=== PATIENT | male | born 1935 | race Two or more races ===

== ENCOUNTER 2022-08-16 12:18 | Inpatient (IN) | payer MEDICARE ==
[~2022-08-16] VITALS: Ht 175.3 cm; Wt 83.9 kg
--- NOTE | 2022-08-16 12:36 | NUR ---
ASSUME PATIENT CARE, WAS BIB CAREGIVER S/P NOTICING PATIENT FOR NEAR SYNCOPAL EPISODE WHILE SITTING IN FRONT PASSENGER SEAT. GOWNED AND PLACED ON DEPUTY ATTORNEY GENERAL. STABLE VITALS AWAITING MD GREWAL.
--- NOTE | 2022-08-16 12:57 | NUR ---
DR LOZANO AT BEDSIDE FOR EVAL.
[2022-08-16] MEDS ORDERED: IV NS 0.9% 1,000 ML BAG IV ONE (13:00)
--- NOTE | 2022-08-16 13:10 | NUR ---
IV LINE STARTED BLOOD DRAWN AND SENT TO LAB.
[2022-08-16 13:36] LABS: BASOPHILS % (AUTO) 0.4 % (0.0-2.0); EOSINOPHILS % (AUTO) 4.7 % (0.0-6.0); HEMATOCRIT 35 % (39-51); HEMOGLOBIN 11.4 g/dL (13.5-17.5); LYMPHOCYTES # (AUTO) 1.8 K/uL (0.8-4.8); LYMPHOCYTES % (AUTO) 27.6 % (20.0-44.0); MEAN CORPUSCULAR HGB CONC 33 g/dl (31.0-36.0); MEAN CORPUSCULAR VOLUME 96 fL (80-96); MONOCYTES # (AUTO) 1.1 K/uL (0.1-1.30); MONOCYTES % (AUTO) 16.8 % (2.0-12.0); NEUTROPHILS # (AUTO) 3.4 K/uL (1.8-8.9); NEUTROPHILS % (AUTO) 50.5 % (43.0-81.0); PLATELET COUNT (AUTO) 170 K/uL (150-450); RED BLOOD CELL COUNT(AUTO) 3.63 MIL/uL (4.5-6.0); WHITE BLOOD COUNT (AUTO) 6.7 K/uL (4.3-11.0)
[2022-08-16 13:41] LABS: ALANINE AMINOTRANSFERASE 23 U/L (12-78); ALBUMIN 2.7 g/dL (3.4-5.0); ALKALINE PHOSPHATASE 83 U/L (46-116); ASPARTATE AMINOTRANSFERASE 21 U/L (15-37); BILIRUBIN,DIRECT 0.1 mg/dL (0.0-0.2); BILIRUBIN,TOTAL 0.4 mg/dL (0.2-1.0); CALCIUM, SERUM 8.6 mg/dL (8.5-10.1); CARBON DIOXIDE 26 mmol/L (21-32); CHLORIDE 105 mmol/L (98-107); CREATININE 2.8 mg/dL (0.6-1.3); GLUCOSE 140 mg/dL (74-106); POTASSIUM 4.5 mmol/L (3.5-5.1); SODIUM SERUM 137 mmol/L (136-145); UREA NITROGEN, BLOOD 56 mg/dL (7-18)
--- NOTE | 2022-08-16 14:03 | NUR ---
RADIOLOGY AT BEDSIDE FOR CHEST XRAY.
[2022-08-16] MEDS ORDERED: HYDR100T27 PO (15:43)
[2022-08-16] MEDS ORDERED: CLON0.1T PO (15:43)
[2022-08-16] MEDS ORDERED: FINA5TAB11 PO (15:43)
[2022-08-16] MEDS ORDERED: CHLO25TA2 PO (15:43)
[2022-08-16] MEDS ORDERED: GABA300C PO (15:43)
[2022-08-16] MEDS ORDERED: CYAN-51 PO (15:43)
[2022-08-16] MEDS ORDERED: ATOR80TA PO (15:43)
[2022-08-16] MEDS ORDERED: DIVA-78 PO (15:43)
[2022-08-16] MEDS ORDERED: CLOP75TA15 PO (15:43)
[2022-08-16] MEDS ORDERED: QUET25TA PO ×2 (15:43)
[2022-08-16] MEDS ORDERED: LISI40TA13 PO (15:43)
[2022-08-16] MEDS ORDERED: CARV6.252 PO (15:43)
--- NOTE | 2022-08-16 15:46 | NUR ---
COVID ANTIGEN SWABBED. LAB CALLED FOR SPORTS TEAM MARKETING INTERN.
[2022-08-16 17:52] LABS: EOSINOPHILS % (MANUAL) 5 % (0-4); LYMPHOCYTES % (MANUAL) 30 % (16-48); MONOCYTES % (MANUAL) 15 % (0-11.0); NEUTROPHILS % (MANUAL) 50 (42-76)
--- NOTE | 2022-08-16 18:11 | NUR ---
GOT BED 312-2
--- NOTE | 2022-08-16 18:28 | NUR ---
REPORT GIVEN TO NORMA TAY. AWAITING TRANSFER TO FLOOR.
[2022-08-16] MEDS ORDERED: MORPHINE SULFATE INJ 2 MG/ML DISP.SYRIN IV PRN (19:00)
[2022-08-16] MEDS ORDERED: Z GUARD REMEDY 4 OZ OINT TP PRN (19:00)
[2022-08-16] MEDS ORDERED: ONDANSETRON HCL/PF 4 MG/2 ML VIAL IVP PRN (19:00)
[2022-08-16] MEDS ORDERED: MAG HYDROX/AL HYDROX/SIMETH 30 ML UDC PO PRN (19:00)
[2022-08-16] MEDS ORDERED: ACETAMINOPHEN 325 MG TABLET PO PRN (19:00)
[2022-08-16] MEDS ORDERED: MAGNESIUM HYDROXIDE 30 ML UDC PO PRN (19:00)
[2022-08-16] MEDS ORDERED: IV NS 0.9% 1,000 ML IV PRN (19:00)
--- NOTE | 2022-08-16 19:30 | NUR ---
PASTE MAKERAIRCRAFT STRUCTURAL DESIGN ENGINEER NOTE PT ARRIVED ON UNIT BEFORE 190. PT FROM HOME ADMITTED TO TELE FROM ER UNDER ROLL FORM OPERATOR VERONICA FOR ADMITTING DX SYNCOPE, POSSIBLY VASOVAGAL, PRERENAL [place]OTEMIA. PT A/O X1-2 WITH EPISODES OF CONFUSION, ABLE TO MAKE NEEDS KNOWN. PT STABLE ON ROOM AIR. NO SOB OR S/S OF RESPIRATORY DISTRESS. BREATHING EVEN AND UNLABORED. ON EXTERNAL BAGGAGE INSPECTOR READING SR 67 BPM. SKIN IS INTACT. IV ACCESS L HAND 18G, INTACT AND PATENT. ORIENTED PT TO UNIT, STAFF, AND ROOM. PT BELONGINGS ACCOUNTED FOR AND BELONGINGS LIST SIGNED. SAFETY PRECAUTION IN PLACE. BED IN LOWEST LOCKED POSITION, HOB ELEVATED, SIDE RAILS UP X3, AND CALL LIGHT AND TABLE WITHIN REACH. ALL NEEDS MET AT THIS TIME.
[2022-08-16 20:00] VITALS: BP 133/59
[2022-08-16 20:16] VITALS: BP 133/59
[2022-08-16] MEDS: GABAPENTIN 300 MG CAPSULE PO SCH (22:11)
[2022-08-16] MEDS: QUETIAPINE FUMARATE 25 MG TABLET PO SCH (22:12)
[2022-08-16] MEDS: ATORVASTATIN 40 MG TABLET PO SCH (22:14)
[2022-08-17] VITALS: BP 150/71
[2022-08-17 04:00] VITALS: BP 179/92
--- NOTE | 2022-08-17 04:30 | NUR ---
ORTHOSTATICS LAYING DOWN BP 179/82 HR 73 R 18 TEMP 97.7 O2 98% SITTING BP 178/92 HR 76 R 18 TEMP 97.7 O2 98% STANDING BP 162/87 HR 88 R 18 TEMP 97.7 O2 97%
[2022-08-17] MEDS ORDERED: hydrALAZINE HCL IV 20 MG VIAL IV PRN (06:00)
--- NOTE | 2022-08-17 06:05 | NUR ---
RN NOTE PT NOTED WITH BP 190/82 HR 87. PT ASYMPTOMATIC AT THIS TIME. INFORMED RESEARCH AGRICULTURAL ENGINEER JOLYNN WITH NEW ORDER NOTED AND CARRIED OUT. ADMINISTERED HYDRALAZINE 10 MG FOR SBP >160 Q8H ORDERED.
[2022-08-17 06:13] LABS: BASOPHILS % (AUTO) 0.4 % (0.0-2.0); EOSINOPHILS % (AUTO) 6.6 % (0.0-6.0); HEMATOCRIT 37 % (39-51); HEMOGLOBIN 12.1 g/dL (13.5-17.5); LYMPHOCYTES # (AUTO) 1.9 K/uL (0.8-4.8); LYMPHOCYTES % (AUTO) 33.1 % (20.0-44.0); MEAN CORPUSCULAR HGB CONC 33 g/dl (31.0-36.0); MEAN CORPUSCULAR VOLUME 96 fL (80-96); MONOCYTES # (AUTO) 0.9 K/uL (0.1-1.30); MONOCYTES % (AUTO) 16.5 % (2.0-12.0); NEUTROPHILS # (AUTO) 2.4 K/uL (1.8-8.9); NEUTROPHILS % (AUTO) 43.4 % (43.0-81.0); PLATELET COUNT (AUTO) 168 K/uL (150-450); RED BLOOD CELL COUNT(AUTO) 3.87 MIL/uL (4.5-6.0); WHITE BLOOD COUNT (AUTO) 5.6 K/uL (4.3-11.0)
--- NOTE | 2022-08-17 06:31 | NUR ---
MEMBERSHIP COORDINATOR CLOSING NOTE PT RESTING IN BED, VERBALLY RESPONSIVE. PT A/O X1-2 WITH EPISODES OF CONFUSION, ABLE TO MAKE NEEDS KNOWN, [place]. PT STABLE ON ROOM AIR. NO SOB OR S/S OF RESPIRATORY DISTRESS. BREATHING EVEN AND UNLABORED. ON EXTERNAL ACQUISITION EDITOR READING SR 87 BPM. IV ACCESS L HAND 18G, INTACT AND PATENT, RUNNING NS @ 75 ML/HR. ALL DUE MEDS GIVEN ORDERED. KEPT CLEAN AND DRY. SAFETY PRECAUTION IN PLACE AT ALL TIMES. BED IN LOWEST LOCKED POSITION, HOB ELEVATED, SIDE RAILS UP X3, AND CALL LIGHT AND TABLE WITHIN REACH. ALL NEEDS MET AT THIS TIME AND WILL ENDORSE TO ONCOMING NURSE FOR DAVID.
[2022-08-17 07:13] LABS: CALCIUM, SERUM 9.1 mg/dL (8.5-10.1); CARBON DIOXIDE 26 mmol/L (21-32); CHLORIDE 111 mmol/L (98-107); CREATININE 1.8 mg/dL (0.6-1.3); GLUCOSE 99 mg/dL (74-106); MAGNESIUM 2.5 mg/dL (1.8-2.4); PHOSPHORUS 3.7 mg/dL (2.5-4.9); POTASSIUM 4.5 mmol/L (3.5-5.1); SODIUM SERUM 144 mmol/L (136-145); UREA NITROGEN, BLOOD 41 mg/dL (7-18)
[2022-08-17 07:14] LABS: CHOLESTEROL 121 mg/dL (<200); HDL CHOLESTEROL 58 mg/dL (40-60); LDL 57 mg/dL (0-99); THYROID STIMULATING HORMONE 3.877 uIU/mL (0.358-3.74); TRIGLYCERIDES 92 mg/dL (30-150)
--- NOTE | 2022-08-17 07:30 | NUR ---
SENIOR WEB ARCHITECT OPENING NOTES RECEIVED PT RESTING IN BED, SPEAKING LOUD, SPOKE TO SON ON THE PHONE AND WANTING TO GO HOME. PT A/O X2 CONFUSED BUT ABLE TO MAKE NEEDS KNOWN, STABLE ON RA. NO SOB, ON EXTERNAL ASSISTANT IN NURSING READING SR 87 BPM. IV ACCESS L HAND 18G, INTACT AND PATENT, RUNNING NS @ 75 ML/HR. KEPT CLEAN AND DRY. SAFETY PRECAUTION IN PLACE AT ALL TIMES. BED IN LOWEST LOCKED POSITION, HOB ELEVATED, SIDE RAILS UP X3, ALL NEEDS MET AT THIS TIME.
[2022-08-17] MEDS ORDERED: CLONIDINE HCL 0.1 MG TABLET PO SCH (09:00)
[2022-08-17] MEDS ORDERED: LISINOPRIL (20MG) 20 MG TABLET PO SCH (09:00)
[2022-08-17] MEDS: QUETIAPINE FUMARATE 25 MG TABLET PO SCH ×2 (09:17→22:01)
[2022-08-17] MEDS: FINASTERIDE (5 MG) 5 MG TABLET PO SCH (09:17)
[2022-08-17] MEDS: CYANOCOBALAMIN 500 MCG TABLET PO SCH (09:18)
[2022-08-17] MEDS: hydrALAZINE HCL 50 MG TABLET PO SCH ×3 (09:19→16:33)
[2022-08-17] MEDS: DIVALPROEX SODIUM 500 MG TABLET.DR PO SCH ×2 (09:19→16:33)
[2022-08-17] MEDS: CARVEDILOL 6.25 MG TABLET PO SCH ×2 (09:20→16:32)
[2022-08-17] MEDS: ISOSORBIDE DINITRATE (20MG) 20 MG TABLET PO SCH ×2 (09:20→16:32)
[2022-08-17] MEDS: PANTOPRAZOLE 40 MG TABLET.DR PO SCH (09:38)
[2022-08-17] MEDS: CLOPIDOGREL BISULFATE 75 MG TABLET PO SCH (09:38)
[2022-08-17] MEDS: IV NS 0.9% 1,000 ML IV PRN (16:13)
[2022-08-17 16:35] VITALS: BP 124/51
--- NOTE | 2022-08-17 18:58 | NUR ---
FEDERAL JUDICIAL LAW CLERK CLOSING NOTE PT RESTING IN BED, VERBALLY RESPONSIVE, WITH DIFFICULTY OF HEARING SO MUST SPEAK LOUDER. PT A/O X1-2 HIGHLY CONFUSED DURING THE COURSE OF THE DAY, ABLE TO MAKE NEEDS KNOWN. PT WOULD ASK FOR SON KRISTIE & RAMIRO DEJESUS MOST OF THE TIME. PT STABLE ON ROOM AIR. NO SOB OR S/S OF RESPIRATORY DISTRESS. BREATHING EVEN AND UNLABORED. ON EXTERNAL DAIRY FARM OPERATOR READING SR 93 BPM. IV ACCESS L HAND 18G, INTACT AND PATENT, RUNNING NS @ 125 ML/HR. ALL DUE MEDS GIVEN ORDERED. KEPT CLEAN AND DRY. SAFETY PRECAUTION IN PLACE AT ALL TIMES. BED IN LOWEST LOCKED POSITION, HOB ELEVATED, SIDE RAILS UP X3, AND CALL LIGHT AND TABLE WITHIN REACH. ALL NEEDS MET AT THIS TIME AND WILL ENDORSE TO EDITOR MANAGING DIRECTOR RN FOR DAVID.
--- NOTE | 2022-08-17 19:25 | NUR ---
TELERN AWAKE, [place] OF [place]AR[place]. NEEDS CONSTANT OBSERVATION. HFR. BED ALARM ON, SR ON THE MONITOR. TO CONTINUE
[2022-08-17 20:00] VITALS: BP 119/62
[2022-08-17 20:50] VITALS: BP 119/62
[2022-08-17] MEDS: ATORVASTATIN 40 MG TABLET PO SCH (22:01)
[2022-08-17] MEDS: GABAPENTIN 300 MG CAPSULE PO SCH (22:01)
[2022-08-18] VITALS: BP 141/79
--- NOTE | 2022-08-18 01:20 | NUR ---
TELERN SEEN BY RN STANDING ON THE SIDE OF HIS BED, EASILY REDIRECTED, BACK TO BED. IVF HELD FOR NOW. WILL RESUME IVF AFTER CHANGING.
[2022-08-18 04:00] VITALS: BP 131/80
[2022-08-18] MEDS: IV NS 0.9% 1,000 ML IV PRN (05:47)
--- NOTE | 2022-08-18 06:55 | NUR ---
TELERN AGREED BLOOD DRAW. PRESENT IVF INFUSING WELL. AM CARE DONE. KEPT COMFORTABLE
[2022-08-18 06:59] LABS: ALANINE AMINOTRANSFERASE 15 U/L (12-78); ALBUMIN 2.5 g/dL (3.4-5.0); ALKALINE PHOSPHATASE 72 U/L (46-116); ASPARTATE AMINOTRANSFERASE 19 U/L (15-37); BILIRUBIN,TOTAL 0.4 mg/dL (0.2-1.0); CALCIUM, SERUM 8.3 mg/dL (8.5-10.1); CARBON DIOXIDE 23 mmol/L (21-32); CHLORIDE 111 mmol/L (98-107); CREATININE 1.9 mg/dL (0.6-1.3); GLUCOSE 90 mg/dL (74-106); MAGNESIUM 2.3 mg/dL (1.8-2.4); PHOSPHORUS 3.1 mg/dL (2.5-4.9); POTASSIUM 4.1 mmol/L (3.5-5.1); SODIUM SERUM 142 mmol/L (136-145); TOTAL PROTEIN, SERUM 5.8 g/dL (6.4-8.2); UREA NITROGEN, BLOOD 43 mg/dL (7-18)
--- NOTE | 2022-08-18 07:00 | NUR ---
GAS DISTRIBUTION AND EMERGENCY CLERK OPENING NOTES: RECEIVED PT IN BED ASLEEP, ALERT AND ORIENTED X 1 WITH EPISODES OF CONFUSION AND FORGETFULNESS. [place], NEEDS FREQUENT REORIENTATION AND REDIRECTION. NO SOB OR CARDIAC DISTRESS NOTED. ON PER DIEM PHYSICAL THERAPIST ASSISTANT WITH CURRENT READING SINUS RHYTHM @@69BPMS. IV ACCESS ON LEFT HAND GAUGE 18,PATENT AND INTACT AND INFUSING NS 1L @125ML/HR. SAFETY MEASURES MAINTAINED: BED LOCKED AND IN LOWEST POSITION, SIDE RAILS UP X 2. CALL LIGHT IN EASY REACH FOR HELP. WILL MONITOR ACCORDINGLY.
[2022-08-18 07:01] LABS: BASOPHILS % (AUTO) 0.4 % (0.0-2.0); EOSINOPHILS % (AUTO) 4.6 % (0.0-6.0); HEMATOCRIT 33 % (39-51); HEMOGLOBIN 10.9 g/dL (13.5-17.5); LYMPHOCYTES # (AUTO) 2.1 K/uL (0.8-4.8); LYMPHOCYTES % (AUTO) 34.7 % (20.0-44.0); MEAN CORPUSCULAR HGB CONC 33 g/dl (31.0-36.0); MEAN CORPUSCULAR VOLUME 96 fL (80-96); MONOCYTES % (AUTO) 15.6 % (2.0-12.0); NEUTROPHILS # (AUTO) 2.8 K/uL (1.8-8.9); NEUTROPHILS % (AUTO) 44.7 % (43.0-81.0); PLATELET COUNT (AUTO) 159 K/uL (150-450); WHITE BLOOD COUNT (AUTO) 6.2 K/uL (4.3-11.0)
[2022-08-18] MEDS: PANTOPRAZOLE 40 MG TABLET.DR PO SCH (07:24)
[2022-08-18] MEDS: FINASTERIDE (5 MG) 5 MG TABLET PO SCH (08:38)
[2022-08-18] MEDS: CYANOCOBALAMIN 500 MCG TABLET PO SCH (08:38)
[2022-08-18] MEDS: DIVALPROEX SODIUM 500 MG TABLET.DR PO SCH (08:38)
[2022-08-18] MEDS: QUETIAPINE FUMARATE 25 MG TABLET PO SCH (08:39)
[2022-08-18] MEDS: ISOSORBIDE DINITRATE (20MG) 20 MG TABLET PO SCH (08:39)
[2022-08-18] MEDS: CARVEDILOL 6.25 MG TABLET PO SCH (08:39)
[2022-08-18] MEDS: hydrALAZINE HCL 50 MG TABLET PO SCH ×2 (08:40→12:35)
[2022-08-18] MEDS: CLOPIDOGREL BISULFATE 75 MG TABLET PO SCH (08:41)
--- NOTE | 2022-08-18 11:00 | NUR ---
RN NOTES: PATIENT DC TO TELE TRANSFERRED TO MED SURG. SHOT DROPPER HANDED TO STAVE BLOCK SPLITTER DAVID.
[2022-08-18 12:35] VITALS: BP 118/60
--- NOTE | 2022-08-18 16:30 | NUR ---
DISCHARGE NOTES: FAMILY REQUESTED PATIENT TO BE DC AND SON KRISTIE INSISTED THAT PT HAS 24 HR CAREGIVER AND HAS HOME HEALTH. INFORMED DR SAMI PRINCE ABOUT THE FAMILY REQUESTING DC TODAY, OKAYED TO DC WITH HOME HEALTH ([facility]). INFORMED HARINI FLOWERS PT WILL BE DC. PATIENT IS VERY HAPPY ABOUT THE DC, PT ALERT AND WITH EPISODES OF CONFUSION,NO SOB OR CARDIAC DISTRESS NOTED DENIES ANY PAIN AT THIS TIME,IV ACCESS REMOVED,IDENTIFICATION BAND REMOVED. DC INSTRUCTIONS AND PACKET GIVEN TO ANJELICA (CAREGIVER)AND VERBALIZED UNDERSTANDING. ALL BELONGINGS TAKEN WITH THE PT BRIJESH GREGORIO WHEELED PT IN THE LOBBY. PT LEFT THE UNIT STABLE.
[2022-08-18 17:31] LABS: BAND % (MANUAL) 2 % (0.0-5.0); EOSINOPHILS % (MANUAL) 6 % (0-4); LYMPHOCYTES % (MANUAL) 29 % (16-48); MONOCYTES % (MANUAL) 12 % (0-11.0); NEUTROPHILS % (MANUAL) 51 (42-76)
== END 2022-08-18 16:45 | disposition home health service (06) | DRG 640 ==
LOC: ER 12:27 → TELE 18:26
PROVIDERS: ADMIT Nurse Practitioner Acute Care; ATTEND Nurse Practitioner Acute Care
DX: E86.0 Dehydration (principal); G93.41 Metabolic encephalopathy; N17.0 Acute kidney failure with tubular necrosis; F03.911 Unspecified dementia, unspecified severity, with agitation; Q60.0 Renal agenesis, unilateral; I12.9 Hypertensive chronic kidney disease with stage 1 through stage 4 chronic kidney disease, or unspecified chronic kidney disease; R55 Syncope and collapse; N18.9 Chronic kidney disease, unspecified; I25.10 Atherosclerotic heart disease of native coronary artery without angina pectoris; E78.5 Hyperlipidemia, unspecified; N40.0 Benign prostatic hyperplasia without lower urinary tract symptoms; Z20.822 Contact with and (suspected) exposure to COVID-19; H91.10 Presbycusis, unspecified ear
CPT/HCPCS: 36415; 70450-TC; 71045-TC; 76770-TC; 80048-TC; 80053-TC; 80061-TC; 80076-TC; 83735-TC; 84100-TC; 84443-TC; 84484-TC; 85025-TC; 85730-TC; 86850-TC; 87081-TC; 93307-TC; 97110-TC; 97112-TC; 97530-TC; C9803; G0378; J0360; J7030